=== PATIENT | female | born 1960 | race Caucasian/White ===

== ENCOUNTER → 2016-09-27 | Outpatient (CLI) | payer BC ==
[~2016-09-27] MED LIST: AGM875T PO; AZIT1PAC8 PO; CLIN-62 PO; METR500T PO; OMEP-10 PO
--- OUTSIDE RECORDS SUMMARY | 2016-09-27 13:09 | XMS REPORT | Continuity of Care Document ---
Author Author [facility] Organization [facility] Address Unknown Phone Unavailable Care Team Providers Care Lug Loader Name Role Phone Janett Vargas PCP [phone] Source Comments Some departments are not documenting in the electronic medical record. If you do not see the information that you expected, contact Release of Information in the Health Information Management department at [phone] for further assistance in locating additional records.[facility] Active Allergies and Adverse Reactions No Known Allergies Current Medications Prescription Sig. Disp. 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 Reexcision lumpectomy/wound excision, 11/23/11 2. Left breast quadrantectomy/SLNB (0/), 08/17/11 History: The patient is a 51 year old female who presented to the [facility] on 02/20/2012 for evaluation of her left breast cancer. She noted a left breast mass on SBE and had a left diagnostic mammogram on 08/09/11 ([facility]ia [facility]) that showed a 2 cm oval area of increased density in the medial aspect of the breast, which had not been seen on previous imaging in 11/2010. A left breast US on the same day showed a 1.0 x 0.8 x 1.1 cm mass at 10:00 corresponding with the mammographic finding. A CNB of the mass revealed a malignancy. She underwent a quandrantectomy/SLNB in July,; surgical pathology revealed a 2.5 cm, triple negative, IDC with associated high grade DCIS, margins were clear, and there was 1 negative SLN and 1 negative nonsentinel axillary lymph node. She subsequently developed a hematoma that was aspirated four times and later became infected. She underwent an incision and drainage and the wound was packed. She was evaluated at for growth of actinomyces and bacteroides fragilis on wound culture and she was admitted to [facility] on 11/23/11 therapy for IV Zosyn and Vancomycin x 7 days; she was discharged to home with Augmentin x 10 days. She had started adjuvant AC x 4 which was completed on 10/20/11 prior to her admission; weekly Taxol was delayed due to the infection and was started on 12/01/11. She has had 05/02 taxol treatments. The patient was going to start radiation therapy, but developed an open wound at the lumpectomy site that did not heal with conservative treatment. She returned to the OR on 01/31/12 for excision and closure of the open wound. Surgical pathology from the wound excision/reexcision lumpectomy (one specimen, oriented) revealed a 2 mm focus of residual DCIS within the cavity wall with 1cm margins. Breast MRI at on 02/29/12 revealed no evidence of malignancy in either breast (no residual enhancement at lumpectomy site) and no axillary adenopathy. 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 Jones Referred by: Dr. Ann Jones Social History Tobacco Use Types Packs/Day Years Used Date Never Smoker Smokeless Tobacco: Never Used Alcohol Use Drinks/Week oz/Week Comments Yes occasional Last Filed Vital Signs Vital Sign Reading Time Taken Blood Pressure 145/94 02/20/2012 1:28 PM CDT Pulse 94 02/20/2012 1:28 PM CDT Temperature 36.8 C (98.3 F) 02/20/2012 1:28 PM CDT Respiratory Rate 16 11/23/2011 12:50 PM CDT Height 1.746 m (5' 8.75") 02/20/2012 1:28 PM CDT Weight 107.14 kg (236 lb 3.2 oz) 02/20/2012 1:28 PM CDT Body Mass Index 35.14 02/20/2012 1:28 PM CDT Oxygen Saturation 98% 02/20/2012 1:28 PM CDT Plan of Care Health Maintenance Due Date Last Done Comments Physical (Comprehensive) 1968 Exam Pertussis Vaccine 1972 Tetanus Vaccine 1978 Cervical Cancer Screening 1982 Breast Cancer Screening 2001 Colorectal Cancer 2011 Screening Influenza Vaccine 04/21/2016 Results from Last 3 Months Not on file
== END ==
LOC: ONC 13:03
PROVIDERS: ATTEND Internal Medicine Hematology & Oncology
DX: C50.212 Malignant neoplasm of upper-inner quadrant of left female breast (principal); Z17.1 Estrogen receptor negative status [ER-]; Z86.010 Personal history of colon polyps; Z92.21 Personal history of antineoplastic chemotherapy; Z92.3 Personal history of irradiation
CPT/HCPCS: 99213

== ENCOUNTER 2016-10-31 12:00 | Outpatient (CLI) | payer BC ==
--- OUTSIDE RECORDS SUMMARY | 2016-10-17 05:41 | XMS REPORT | Continuity of Care Document ---
Author Author [facility] Organization [facility] Address Unknown Phone Unavailable Care Team Providers Care Mother Superior Name Role Phone Janett Vargas PCP [phone] Source Comments Some departments are not documenting in the electronic medical record. If you do not see the information that you expected, contact Release of Information in the Health Information Management department at [phone] for further assistance in locating additional records.[facility] Active Allergies and Adverse Reactions No Known Allergies Current Medications Prescription Sig. Disp. Refills Start End Date Status Date NO HOME MEDICATIONS Active Active Problems Problem Noted Date Breast cancer (HCC) 02/17/2012 Overview: Diagnosis: Left, 2.5 cm, grade 1, triple negative IDC (ER0, PR0, Her2 2+, FISH 1.3) with associated high grade DCIS, [id number] Procedures: 1. Reexcision lumpectomy/wound excision, 11/23/11 2. Left breast quadrantectomy/SLNB (0/), 08/17/11 History: The patient is a 51 year old female who presented to the [facility] Surgery [facility] on 02/20/2012 for evaluation of her left breast cancer. 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
[~2016-10-31] VITALS: Ht 175.3 cm; Wt 106.6 kg
--- OUTSIDE RECORDS SUMMARY | 2016-10-31 12:26 | XMS REPORT | Continuity of Care Document ---
Author Author [facility] Organization [facility] Address Unknown Phone Unavailable Care Team Providers Care Low Voltage Electrician Name Role Phone Janett Vargas PCP [phone] Source Comments Some departments are not documenting in the electronic medical record. If you do not see the information that you expected, contact Release of Information in the Health Information Management department at [phone] for further assistance in locating additional records.[facility] Active Allergies and Adverse Reactions No Known Allergies Current Medications Prescription Sig. Disp. Refills Start End Date Status Date NO HOME MEDICATIONS Active Active Problems Problem Noted Date Breast cancer (HCC) 02/17/2012 Overview: Diagnosis: Left, 2.5 cm, grade 1, triple negative IDC (ER0, PR0, Her2 2+, FISH 1.3) with associated high grade DCIS, [id number] Procedures: 1. Reexcision lumpectomy/wound excision, 11/23/11 2. Left breast quadrantectomy/SLNB (0/), 08/17/11 History: The patient is a 51 year old female who presented to the [facility] Surgery Clinic on 02/20/2012 for evaluation of her left breast cancer. 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
== END 2016-10-31 12:23 ==
LOC: PREOP 12:00
PROVIDERS: ATTEND Surgery Pediatric Surgery
DX: Z01.818 Encounter for other preprocedural examination (principal); Z12.11 Encounter for screening for malignant neoplasm of colon; Z86.010 Personal history of colon polyps

== ENCOUNTER → 2016-11-02 | Day surgery (SDC) | payer BC ==
[~2016-11-02] MED LIST changes: +ACETAMINOPHEN 325 MG TABLET/CAPLET (TYLENOL) PO PRN; +FLUMAZENIL (ROMAZICON) 0.1 MG/ML 5 ML VIAL INJ PRN; +HYDROcodone/APAP 5 MG/325 MG (LORTAB) TAB PO PRN; +LIDOCAINE JELLY 2% (XYLOCAINE) 5 ML TUBE ONE; +LIDOCAINE JELLY 2% (XYLOCAINE) 5 ML TUBE TOP ONE; +MIDAZOLAM 2 MG/2 ML (VERSED) VIAL ONE; +NALOXONE 0.4 MG/ML 1 ML (NARCAN) VIAL IVP PRN; +NS IV 500 ML 500 ML IV ONE; +ONDANSETRON 4 MG/2 ML (SDV) Z0FRAN IV PRN; +fentaNYL INJECTION 100 MCG/2 ML AMP ONE; +morphine INJ 10 MG/ML 1ML (SYR OR VIAL) IV PRN
--- OUTSIDE RECORDS SUMMARY | 2016-11-02 10:00 | XMS REPORT | Continuity of Care Document ---
Author Author [facility] Organization [facility] Address Unknown Phone Unavailable Care Team Providers Care Stamping Press Operator Name Role Phone Janett Vargas PCP [phone] Source Comments Some departments are not documenting in the electronic medical record. If you do not see the information that you expected, contact Release of Information in the Health Information Management department at [phone] for further assistance in locating additional records.[facility] Active Allergies and Adverse Reactions No Known Allergies Current Medications Prescription Sig. Disp. Refills Start End Date Status Date NO HOME MEDICATIONS Active Active Problems Problem Noted Date Breast cancer (HCC) 02/17/2012 Overview: Diagnosis: Left, 2.5 cm, grade 1, triple negative IDC (ER0, PR0, Her2 2+, FISH 1.3) with associated high grade DCIS, [id number] Procedures: 1. Reexcision lumpectomy/wound excision, 11/23/11 2. Left breast quadrantectomy/SLNB (0/), 08/17/11 History: The patient is a 51 year old female who presented to the [facility] Surgery Clinic on 02/20/2012 for evaluation of her left breast cancer. 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
--- OUTSIDE RECORDS SUMMARY | 2016-11-02 10:00 | XMS REPORT | Continuity of Care Document ---
Author Author [facility] Organization [facility] Address Unknown Phone Unavailable Care Team Providers Care Load Dispatcher Name Role Phone Janett Vargas PCP [phone] Source Comments Some departments are not documenting in the electronic medical record. If you do not see the information that you expected, contact Release of Information in the Health Information Management department at [phone] for further assistance in locating additional records.[facility] Active Allergies and Adverse Reactions No Known Allergies Current Medications Prescription Sig. Disp. 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 Reexcision lumpectomy/wound excision, 11/23/11 2. Left breast quadrantectomy/SLNB (0/), 08/17/11 History: The patient is a 51 year old female who presented to the [facility] Surgery Clinic on 02/20/2012 for evaluation of her left breast cancer. 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
[2016-11-02 10:15] VITALS: BP 133/86
[2016-11-02] MEDS: fentaNYL INJECTION 100 MCG/2 ML AMP IVP PRN ×5 (13:14→13:44)
[2016-11-02] MEDS: MIDAZOLAM 2 MG/2 ML (VERSED) VIAL IVP PRN ×6 (13:15→13:37)
--- NOTE | 2016-11-02 14:02 | Conscious Sedation/ASA ---
Conscious Sedation Pre-Proced Time Reviewed: 13:00 ASA Class: 2 Airway Mallampati Classification: (poarch appropriate class) I. II. III, IV Lungs Heart ASA score ASA 1: a normal healthy patient ASA 2: a patient with a mild systemic disease (mid diabetes, controlled hypertension, obesity ASA 3: a patient with a severe systemic disease that limits activity (angina , COPD, prior Myocardial infarction) ASA 4: a patient with an incapacitating disease that is a constant threat to life (CHF, renal failure) ASA 5: a moribund patient not expected to survive 24 hrs. (ruptured aneurysm) ASA 6: a declared brain patient whose organs are being harvested. For emergent operations, add the letter E after the classification Grade 2 Sedation Plan: Analgesia, Amnesia, Plan communicated to team members, Discussed options with patient/fam, Discussed risks with patient/fam Note The patient is an appropriate candidate to undergo the planned procedure, sedation, and anesthesia. The patient immediately re-assessed prior to indication. KEO ORDAZ MD Nov 02, 2016 2:02 pm
--- NOTE | 2016-11-02 14:03 | Progress Note-Pre Operative ---
Pre-Operative Progress Note H&P Reviewed The H&P was reviewed, patient examined and no changes noted. Date H&P Reviewed: Nov 02, 2016 Time H&P Reviewed: 13:00 Pre-Operative Diagnosis: hx colon polyp, hx breast ca KEO ORDAZ MD Nov 02, 2016 2:03 pm
--- NOTE | 2016-11-02 14:04 | Progress Note-Post Operative ---
Post-Operative Progess Note Pre-Operative Diagnosis hx colon polyp, hx breast ca Post-Operative Diagnosis chronic stage 1 ext and int hemorrhoids. Post-Op Procedure Note Date of Procedure: Nov 02, 2016 Name of Procedure: Colonoscopy Anesthesia Type CS Estimated blood loss (mL): KEO Cook MD Nov 02, 2016 2:03 pm
--- NOTE | 2016-11-02 14:05 | Discharge Inst-Surgical ---
D/C Lap Instructions-SUSHMA Follow Up 5-7 years Activity as tolerated High Fiber Diet 25g or more per day Avoid Alcohol, Caffeine, Spicy [place] and Acid foods. Drink 64 fluid oz or more of fluids per day. Symptoms to Report: Fever over 101 degree F, Nausea/Vomiting If any problems/questions: Contact your physician or go to Emergency Room KEO ORDAZ MD Nov 02, 2016 2:05 pm
[2016-11-02 14:15] VITALS: BP 111/72
[2016-11-02 14:35] VITALS: BP 119/74
[2016-11-02 14:45] VITALS: BP 119/74
--- NOTE | 2016-11-03 09:52 | PROCEDURE REPORT ---
PROCEDURE PHYSICIAN: KEO FIERRO DATE OF PROCEDURE: 11/02/2016 ATTENDING PRIMARY CARE PHYSICIAN: Dr. Vargas PREOPERATIVE DIAGNOSIS: 1. History of colon polyp. 2. Personal history of breast cancer. POSTOPERATIVE DIAGNOSIS: Mild stage I chronic external and internal hemorrhoids. PROCEDURE: Colonoscopy. SURGEON: Dr. Fierro. ANESTHESIA: Conscious sedation. ESTIMATED BLOOD LOSS: Minimal. FINDINGS: 1. Mild stage I external and internal hemorrhoids, not actively edematous or inflamed and no bleeding. 2. The remainder of the rectum and colon were normal. There were no polyps identified. DISPOSITION: The patient tolerated the procedure well. BRIEF HISTORY: Ms. Carmen Hancock is a 56-year-old female in need of a follow-up colonoscopy. She was initially seen by us in June 2013 and a colonoscopy performed at the time. There were mild hemorrhoids identified, as well as a small sigmoid colon polyp 4 mm in size which came back as a tubular adenoma. She does not report any family history of colon cancer. However, she does have a personal history of left breast cancer diagnosed July 2011. She underwent breast lumpectomy as well as axillary node dissection which was found to be negative. The tumor was a stage IIA which was ER/CT negative. She did have some issues with wound complications requiring a reexcision of abscess and granulomatous tissue in January 2012 and a small focus of ductal carcinoma in situ was also identified. After surgery, she did receive chemotherapy as well as radiation. Otherwise, she is doing well and having normal bowel movements at this time. She does not report any red blood per rectum or any dark tarry stools. PROCEDURE: The patient was brought to the endoscopy suite and laid in the left lateral decubitus position. After adequate IV pain and sedative medications and conscious sedation anesthesia, a digital rectal examination was performed. Chronic stage I external and internal hemorrhoids were identified which were not actively edematous or inflamed and no bleeding. Normal sphincter tone was felt and there were no palpable masses. The endoscope was intubated into the anus and rectum. The endoscope was then advanced to the valves of Vyas and rectum with no polyps or any neoplasms identified. We then proceeded through the sigmoid colon where no diverticulosis identified. The endoscope was then advanced through the remainder of the descending, transverse, as well as ascending colon to the cecum. These segments were normal. There were no polyps or any neoplasms identified throughout the colon or rectum. The endoscope was slowly withdrawn while taking a second look and suctioning of residual air with no additional findings. The patient tolerated the procedure well. We will recommend continued medical management with a high fiber diet with at least 25 grams of fiber per day well as 64 fluid ounces of water daily to promote soft stools on a daily basis. No polyps were identified on this colonoscopy. She does not report any family history of colon cancer, however, does have a personal history of breast cancer as well as a previous tubular adenoma. At this time we feel that she can proceed with follow up colonoscopy in the next 5 to 7 years. Job ID: [id number] Dictated Date: 11/02/2016 14:01:44 Merchandise Shopper Date: 11/03/2016 09:42:04 / bernice
== END | disposition home or self-care (01) ==
LOC: ENDO 09:56
PROVIDERS: ATTEND Surgery Pediatric Surgery
DX: Z09 Encounter for follow-up examination after completed treatment for conditions other than malignant neoplasm (principal); K64.0 First degree hemorrhoids; Z86.010 Personal history of colon polyps; Z85.3 Personal history of malignant neoplasm of breast

== ENCOUNTER → 2017-08-17 | Outpatient (CLI) | payer BC ==
[~2017-08-17] MED LIST changes: -ACETAMINOPHEN 325 MG TABLET/CAPLET (TYLENOL) PO PRN; -FLUMAZENIL (ROMAZICON) 0.1 MG/ML 5 ML VIAL INJ PRN; -HYDROcodone/APAP 5 MG/325 MG (LORTAB) TAB PO PRN; -LIDOCAINE JELLY 2% (XYLOCAINE) 5 ML TUBE ONE; -LIDOCAINE JELLY 2% (XYLOCAINE) 5 ML TUBE TOP ONE; -MIDAZOLAM 2 MG/2 ML (VERSED) VIAL ONE; -NALOXONE 0.4 MG/ML 1 ML (NARCAN) VIAL IVP PRN; -NS IV 500 ML 500 ML IV ONE; -ONDANSETRON 4 MG/2 ML (SDV) Z0FRAN IV PRN; -fentaNYL INJECTION 100 MCG/2 ML AMP ONE; -morphine INJ 10 MG/ML 1ML (SYR OR VIAL) IV PRN
== END ==
LOC: RAD 09:51
PROVIDERS: ATTEND Internal Medicine Hematology & Oncology
DX: Z12.31 Encounter for screening mammogram for malignant neoplasm of breast (principal)
CPT/HCPCS: 77067

== ENCOUNTER → 2017-10-03 | Outpatient (CLI) | payer BC, OTHER ==
--- NOTE | 2017-10-03 13:48 | Diagnostic Imaging Report ---
INDICATION: Postmenopausal bleeding. FINDINGS: Transabdominal and transvaginal pelvic sonography was performed. Uterus measures 6.1 x 4.5 x 4.1 cm. The endometrium is 5 mm in thickness. No uterine mass is identified. The ovaries are not visualized. No adnexal mass or free fluid is seen. IMPRESSION: Nonvisualized ovaries. No other significant abnormality is detected. Dictated by: Dictated on workstation # [id number]
== END ==
LOC: RAD 10:51
PROVIDERS: ATTEND Nurse Practitioner
DX: N95.0 Postmenopausal bleeding (principal)
CPT/HCPCS: 76830; 76856

== ENCOUNTER → 2017-10-05 | Outpatient (CLI) | payer OTHER ==
[2017-10-05 12:25] LABS: BASOPHILS % (AUTO) 0 % (0-10); EOSINOPHILS # (AUTO) 0.2 10^3/uL (0.0-0.3); EOSINOPHILS % (AUTO) 2 % (0-10); HEMATOCRIT 42 % (35-52); HEMOGLOBIN 14.2 G/DL (11.5-16.0); LYMPHOCYTES # (AUTO) 2.3 X 10^3 (1.0-4.0); LYMPHOCYTES % (AUTO) 25 % (12-44); MEAN CORPUSCULAR HEMOGLOBIN 28 PG (25-34); MEAN CORPUSCULAR HGB CONC 34 G/DL (32-36); MEAN CORPUSCULAR VOLUME 83 FL (80-99); MEAN PLATELET VOLUME 9.8 FL (7.4-10.4); MONOCYTES # (AUTO) 0.5 X 10^3 (0.0-1.0); MONOCYTES % (AUTO) 5 % (0-12); NEUTROPHILS # (AUTO) 6.1 X 10^3 (1.8-7.8); NEUTROPHILS % (AUTO) 67 % (42-75); PLATELET COUNT 295 10^3/uL (130-400); RED BLOOD COUNT 5.08 10^6/uL (4.35-5.85); RED CELL DISTRIBUTION WIDTH 14.1 % (10.0-14.5); WHITE BLOOD COUNT 9.1 10^3/uL (4.3-11.0)
[2017-10-05 12:41] LABS: ALANINE AMINOTRANSFERASE 21 U/L (0-55); ALBUMIN 4.4 GM/DL (3.2-4.5); ALKALINE PHOSPHATASE 91 U/L (40-136); BILIRUBIN,TOTAL 0.7 MG/DL (0.1-1.0); BUN/CREATININE RATIO 19; CALCIUM 10.2 MG/DL (8.5-10.1); CARBON DIOXIDE 25 MMOL/L (21-32); CHLORIDE 104 MMOL/L (98-107); CREATININE SERUM 0.81 MG/DL (0.60-1.30); GFR ESTIMATED > 60; GLUCOSE 91 MG/DL (70-105); POTASSIUM 4.8 MMOL/L (3.6-5.0); SODIUM 142 MMOL/L (135-145); TOTAL PROTEIN 7.6 GM/DL (6.4-8.2)
== END ==
LOC: ONC 13:15
PROVIDERS: ATTEND Internal Medicine Hematology & Oncology
DX: Z08 Encounter for follow-up examination after completed treatment for malignant neoplasm (principal); Z85.3 Personal history of malignant neoplasm of breast; L50.8 Other urticaria; N95.0 Postmenopausal bleeding; Z86.010 Personal history of colon polyps; Z92.21 Personal history of antineoplastic chemotherapy; Z92.3 Personal history of irradiation
CPT/HCPCS: 80053; 85025; 99213

== ENCOUNTER → 2017-10-25 | Outpatient (CLI) | payer OTHER | LOC: ONC 13:58 | PROVIDERS: ATTEND Nurse Practitioner Adult Health | DX: Z08 Encounter for follow-up examination after completed treatment for malignant neoplasm (principal); Z85.3 Personal history of malignant neoplasm of breast; Z92.21 Personal history of antineoplastic chemotherapy; Z92.3 Personal history of irradiation; Z80.42 Family history of malignant neoplasm of prostate | CPT/HCPCS: 99213 ==

== ENCOUNTER → 2018-08-17 | Outpatient (CLI) | payer OTHER ==
--- NOTE | 2018-08-17 20:53 | Diagnostic Imaging Report ---
INDICATION: Routine screening. COMPARISON: Prior mammograms from 08/17/2017 and 08/16/2016. EXAMINATION: 2D and 3D bilateral screening mammography was performed with CAD. The current study was also evaluated with a Computer Aided Detection (CAD) system. FINDINGS: Both breasts are heterogeneously dense, limiting the sensitivity of mammography. Post therapeutic changes in the medial upper left breast are again noted with area of architectural distortion appearing stable. Benign calcifications appear stable, bilaterally. No new mass or malignant appearing microcalcifications are seen. The axillae are unremarkable. IMPRESSION: Stable bilateral mammograms with no mammographic features suspicious for malignancy. ACR BI-RADS Category 2: Benign findings. Result letter will be mailed to the patient. Note: At least 10% of breast cancer is not imaged by mammography. Dictated on workstation # [id number]
== END ==
LOC: RAD 10:06
PROVIDERS: ATTEND Internal Medicine Hematology & Oncology
DX: Z12.31 Encounter for screening mammogram for malignant neoplasm of breast (principal); C50.212 Malignant neoplasm of upper-inner quadrant of left female breast
CPT/HCPCS: 77067

== ENCOUNTER 2018-09-27 13:30 | Outpatient (RCR) | payer OTHER | END 2018-12-26 | disposition home or self-care (01) | LOC: LAB 13:30 | PROVIDERS: ATTEND Internal Medicine Hematology & Oncology | DX: Z08 Encounter for follow-up examination after completed treatment for malignant neoplasm (principal); Z85.3 Personal history of malignant neoplasm of breast; R21 Rash and other nonspecific skin eruption; Z92.21 Personal history of antineoplastic chemotherapy; Z92.3 Personal history of irradiation; Z86.010 Personal history of colon polyps | CPT/HCPCS: 99213 ==

== ENCOUNTER → 2019-08-19 | Outpatient (CLI) | payer OTHER ==
--- NOTE | 2019-08-19 13:22 | Diagnostic Imaging Report ---
INDICATION: Routine screening. Comparison is made with prior mammogram from 08/17/2018 and 08/17/2017. 2-D and 3-D bilateral screening mammography was performed with CAD. Both breasts remain heterogeneously dense, limiting the sensitivity of mammography. A post-therapeutic changes medial left breast appears stable. No recurrent mass is identified. Area of architectural distortion is stable. There are scattered benign calcifications bilaterally. No new mass is seen. No malignant appearing microcalcifications are identified. The axillae are unremarkable. IMPRESSION: BI-RADS Category 2 No mammographic features suspicious for malignancy are identified. ACR BI-RADS Category 2: Benign findings. Result letter will be mailed to the patient. Note: At least 10% of breast cancer is not imaged by mammography. Dictated by: Dictated on workstation # [id number]
== END ==
LOC: RAD 09:04
PROVIDERS: ATTEND Internal Medicine Hematology & Oncology
DX: Z12.31 Encounter for screening mammogram for malignant neoplasm of breast (principal); C50.212 Malignant neoplasm of upper-inner quadrant of left female breast
CPT/HCPCS: 77067

== ENCOUNTER 2019-09-27 13:01 | Outpatient (RCR) | payer OTHER | END 2019-12-26 | disposition home or self-care (01) | LOC: ONC 13:01 | PROVIDERS: ATTEND Internal Medicine Hematology & Oncology | DX: L50.8 Other urticaria (principal); N95.0 Postmenopausal bleeding; Z85.3 Personal history of malignant neoplasm of breast; Z85.038 Personal history of other malignant neoplasm of large intestine | CPT/HCPCS: 99213 ==

== ENCOUNTER → 2020-08-20 | Outpatient (CLI) | payer OTHER ==
--- NOTE | 2020-08-20 13:13 | Diagnostic Imaging Report ---
Digital mammogram, bilateral screening. This study was compared to the prior exams of 08/19/2019, 08/17/2018 and 08/17/2017. At this time, there are no current complaints. The post biopsy and post therapeutic changes involving the left breast noted on the prior exams are again evident. There is no sign of recurrent malignancy involving the left breast. The fibroglandular tissue in both breasts is heterogeneously dense. This does limit the sensitivity of this exam. Overall, there does not appear to have been any significant change. There is no primary or secondary sign of malignancy noted. IMPRESSION: There is no evidence of malignancy. ACR BI-RADS Category 1: Negative. Result letter will be mailed to the patient. Note: At least 10% of breast cancer is not imaged by mammography. Dictated by: Dictated on workstation # [id number]
== END ==
LOC: RAD 10:09
PROVIDERS: ATTEND Internal Medicine Hematology & Oncology
DX: Z12.31 Encounter for screening mammogram for malignant neoplasm of breast (principal); Z85.3 Personal history of malignant neoplasm of breast
CPT/HCPCS: 77063; 77067

== ENCOUNTER → 2021-10-07 | Outpatient (CLI) | payer OTHER ==
--- NOTE | 2021-10-07 13:51 | Diagnostic Imaging Report ---
Digital mammogram bilateral screening This study was compared to the prior exams of 08/20/2020, 08/19/2019 and 08/17/2018. At this time, there are no current complaints. The previous exams have shown postsurgical and post-therapeutic changes involving the left breast. Those findings are again visualized and do not appear to have changed adversely. There is no sign of recurrent malignancy involving the left breast. The fibroglandular tissue in both breasts is heterogeneously dense. This does limit the sensitivity of this exam. When compared to the previous study, there does not appear to have been any significant change. There is no primary or secondary sign of malignancy noted. IMPRESSION: There is no evidence for malignancy. ACR BI-RADS Category 1: Negative. Result letter will be mailed to the patient. Note: At least 10% of breast cancer is not imaged by mammography. Dictated by: Dictated on workstation # [id number]
== END ==
LOC: RAD 10:30
PROVIDERS: ATTEND Family Medicine
DX: Z12.31 Encounter for screening mammogram for malignant neoplasm of breast (principal)
CPT/HCPCS: 77063; 77067

== ENCOUNTER 2022-07-01 07:48 | Day surgery (SDC) | payer OTHER ==
--- NOTE | 2022-06-22 06:52 | HISTORY AND PHYSICAL ---
DATE OF SERVICE: COLONOSCOPY HISTORY AND PHYSICAL DATE OF ADMISSION: 07/01/2022 ' HISTORY OF PRESENT ILLNESS: The patient is a 61-year-old white female referred by Dr. Vargas for screening colonoscopy. She is deemed to be of higher than average risk with a history of breast cancer and a family history of colon polyps and the next case being her father, who has had several removed, still living at the age of 90. She as I recall occasionally have a small amount of bright red blood that she attributes to hemorrhoids, has had no bowel habit change, mostly this is just on the toilet paper, not mixed in the stool. She denies melena or abdominal pain. PAST MEDICAL HISTORY: Significant for breast cancer diagnosed over 10 years ago for which she completed a left upper quadrantectomy followed by radiation therapy. She reports a history of mild hypertension for which she is now currently only on 25 mg of metoprolol. SOCIAL HISTORY: She is with no past smoking history and no significant alcohol intake. FAMILY HISTORY: As noted in the HPI. She is not aware of any family history for colon cancer. REVIEW OF SYSTEMS: CONSTITUTIONAL: Denies night sweats, chills, fever, change in weight. GASTROINTESTINAL: As noted in the HPI. PULMONARY: Denies cough, wheezing or shortness of breath. CARDIOVASCULAR: Denies chest discomfort, orthopnea, PND or pedal edema. PHYSICAL EXAMINATION: GENERAL: Reveals a white female, appears to be in no acute distress. VITAL SIGNS: Weight 261 pounds, blood pressure 130/90. HEENT: Unremarkable. Sclerae nonicteric. CHEST: Clear to auscultation. CARDIOVASCULAR: Reveals a regular rate and rhythm without murmur, S3 or S4. ABDOMEN: Soft, supple without mass, organomegaly or tenderness. No surgical scars noted. No bruits are appreciated. EXTREMITIES: Reveal no cyanosis, clubbing or edema. ASSESSMENT AND PLAN: The patient is being set up for screening colonoscopy due to having higher than average risk secondary to personal history of breast cancer, overweight status and family history of colon polyps as outlined above. Prep instructions were given. Her electronic medical record was reviewed and questions were answered. I thank you for the referral of this pleasant lady. Job ID: [id number] DocumentID: [id number] Dictated Date: 06/20/2022 17:42:57 Supervisor Long Goods Date: 06/20/2022 18:19:13 Dictated By: LEROY CHAMBERS MD
[~2022-07-01] VITALS: Ht 175.3 cm; Wt 118.6 kg
[~2022-07-01 07:48] MED LIST changes: +MTP25TSR PO
[2022-07-01] MEDS ORDERED: LACTATED RINGERS 1,000 ML IV STA (07:59)
[2022-07-01] MEDS ORDERED: LACTATED RINGERS 1,000 ML IV ONE (08:09)
[2022-07-01 08:10] VITALS: BP 141/91
--- NOTE | 2022-07-01 08:20 | Pre-Op Note & Conscious Sedat ---
Pre-Operative Progress Note Date H&P Reviewed: Jul 01, 2022 Time H&P Reviewed: 08:20 History & Physical: H&P Reviewed, Patient Examed, No changes noted Pre-Op Diagnosis: screening Conscious Sedation Pre-Proced ASA Score 2 For ASA 3 and 4: Consider anesthesia and medical clearance. Also, for patients with a history of failed moderate sedation consider anesthesia. Airway Lungs Heart ASA score ASA 1: a normal healthy patient ASA 2: a patient with a mild systemic disease (mid diabetes, controlled hypertension, obesity ASA 3: a patient with a severe systemic disease that limits activity (angina, COPD, prior Myocardial infarction) ASA 4: a patient with an incapacitating disease that is a constant threat to life (CHF, renal failure) ASA 5: a moribund patient not expected to survive 24 hrs. (ruptured aneurysm) ASA 6: a declared brain- patient whose organs are being harvested. For emergent operations, add the letter E after the classification Mallampati Classification Grade 2 Sedation Plan Analgesia, Amnesia, Plan communicated to team members, Discussed options with patient/fam, Discussed risks with patient/fam The patient is an appropriate candidate to undergo the planned procedure, sedation, and anesthesia. The patient immediately re-assessed prior to indication. LEROY CHAMBERS MD Jul 01, 2022 08:20
[2022-07-01] MEDS ORDERED: PROPOFOL INJECTION 50 ML IV ONE (09:07)
[2022-07-01] MEDS ORDERED: MIDAZOLAM 2 MG/2 ML (VERSED) VIAL ONE (09:07)
[2022-07-01 09:35] VITALS: BP 103/54
[2022-07-01 09:40] VITALS: BP 109/58
--- NOTE | 2022-07-01 09:41 | Progress Note-Post Operative ---
Post-Procedure Note Physician (s)/Drop Count Associate (s) Physician LEROY CHAMBERS MD Pre-Procedure Diagnosis Pre-Procedure Diagnosis: screening Post-Procedure Diagnosis Post-operative diagnosis: Prior to undergoing colonoscopy digital rectal evaluation was performed. Anal sphincter tone was normal and the perianal reflexes intact. No abnormalities noted on digital inspection of the anal canal or distal rectal vault. The colonoscope was then inserted into the rectum and under direct visualization advanced to the cecum. The cecum was identified by identification of the cecal strap and appendiceal orifice. Photographic documentation was obtained. A careful inspection was made as the colonoscope was withdrawn. Quality of the prep was good. Findings: No evidence for internal or external hemorrhoids were noted. Present in the mid rectum was a 4 mm sessile polyp it was photographed and biopsied and ablated with no blood loss using hot forceps. The remainder of the rectum sigmoid colon descending colon splenic flexure and transverse colon were unremarkable. Similar 3 mm polyp was noted at the hepatic flexure it was photographed and biopsied and ablated with no blood loss. The remainder of the ascending colon was unremarkable. Present just below the ileocecal valve was an adenomatous appearing polyp with uniform mucosal features just below the ileocecal valve that measured roughly 8 x 15 mm in size with no evidence for ulceration. Attempts to snare the polyp in its entirety were unsuccessful due to the fact that it was below the ileocecal valve. Cauterization was then performed in 2 locations with no significant blood loss with tissue submitted for histopathology. Assessment: 3 polyps removed via hot forceps the most significant below the ileocecal valve and the cecum measuring 8 x 15 mm in size. As long as there is no evidence for dysplasia we will advocate repeat surveillance colonoscopy in 1 year. No other abnormalities noted on today's procedure. I thank you for the furl this pleasant lady.Sincerely, Leroy Chambers MD. CC: LEROY Ricardo MD Jul 01, 2022 09:40
[2022-07-01 09:45] VITALS: BP 110/64
[2022-07-01 10:00] VITALS: BP 135/83
--- NOTE | 2022-07-01 10:48 | Anesthesia-General Post-Op ---
MAC Patient Condition Mental Status/LOC: Same as Preop Cardiovascular: Satisfactory Nausea/Vomiting: Absent Respiratory: Satisfactory Pain: Controlled Complications: Absent Post Op Complications Complications None Follow Up Care/Instructions Patient Instructions None needed. Anesthesiology Discharge Order Discharge Order Patient is doing well, no complaints, stable vital signs, no apparent adverse anesthesia problems. No complications reported per nursing. MELONIE RAYMOND CRNA Jul 01, 2022 10:48
== END 2022-07-01 10:18 | disposition home or self-care (01) ==
LOC: ENDO 07:48
PROVIDERS: ATTEND Internal Medicine
DX: Z12.11 Encounter for screening for malignant neoplasm of colon (principal); D12.0 Benign neoplasm of cecum; D12.3 Benign neoplasm of transverse colon; K62.1 Rectal polyp; Z85.3 Personal history of malignant neoplasm of breast
CPT/HCPCS: 88305

== ENCOUNTER → 2022-10-13 | Outpatient (CLI) | payer BC ==
--- NOTE | 2022-10-13 17:30 | Diagnostic Imaging Report ---
Indication: Chronic pain. Findings: Chronic knee pain. Findings: 4 view right knee performed. No fracture, dislocation or acute-appearing articular irregularity. 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 No opaque loose body. Impression: Degenerative changes, otherwise negative. Dictated by: Dictated on workstation # [id number]
== END ==
LOC: ORTHO 14:15
PROVIDERS: ATTEND Orthopaedic Surgery
DX: M17.11 Unilateral primary osteoarthritis, right knee (principal)
CPT/HCPCS: 73564; 99203

== ENCOUNTER → 2022-11-03 | Outpatient (CLI) | payer BC ==
--- NOTE | 2022-11-03 16:50 | Diagnostic Imaging Report ---
INDICATION: Routine screening. Comparison is made with prior mammogram of 10/07/2021 and 08/20/2020. 2-D and 3-D bilateral screening mammography was performed with CAD. Scattered fibroglandular densities are identified bilaterally. Postoperative changes in the left breast appears stable. No new mass or malignant-appearing microcalcifications are seen. Axillae are unremarkable. IMPRESSION: No mammographic features suspicious for malignancy are identified. ACR BI-RADS Category 2: Benign findings. Result letter will be mailed to the patient. Note: At least 10% of breast cancer is not imaged by mammography. BI-RADS Category 2 Dictated by: Dictated on workstation # [id number]
== END ==
LOC: RAD 14:39
PROVIDERS: ATTEND Family Medicine
DX: Z12.31 Encounter for screening mammogram for malignant neoplasm of breast (principal); M25.561 Pain in right knee
CPT/HCPCS: 77063; 77067

== ENCOUNTER 2023-07-26 05:35 | Outpatient (CLI) | payer BC ==
[~2023-07-26] VITALS: Ht 175.3 cm; Wt 111.1 kg
[2023-07-26] MEDS ORDERED: FAMO-356 PO (11:17)
== END 2023-07-26 11:25 | disposition home or self-care (01) ==
LOC: PREOP 05:35
PROVIDERS: ATTEND Internal Medicine
DX: Z01.818 Encounter for other preprocedural examination (principal)